=== PATIENT | male | born 1980 | race Caucasian/White ===

== ENCOUNTER 2023-01-05 09:51 | Emergency (ER) | payer OTHER ==
[~2023-01-05] VITALS: Ht 185.4 cm; Wt 96.2 kg
[2023-01-05 09:59] VITALS: BP 101/76
--- NOTE | 2023-01-05 10:06 | NUR ---
COVID, FLU SWABS DONE.
--- NOTE | 2023-01-05 11:20 | NUR ---
42 Y/O MALE BIB SELF C/O NASAL CONGESTION AND NON-PRODUCTIVE COUGH X5 DAYS, DENIES ANY SOB, NO WOB NOTED NKA PMH: DENIES
[2023-01-05] MEDS ORDERED: BENZ200C4 PO (11:41)
[2023-01-05] MEDS ORDERED: PRED20TA5 PO (11:42)
--- NOTE | 2023-01-05 11:50 | NUR ---
Patient discharged with v/s stable. Written and verbal after care instructions ABOUT ACUTE BRONCHITIS given and explained. Patient alert, oriented and verbalized understanding of instructions. Ambulatory with steady gait. All questions addressed prior to discharge. ID band removed. Patient advised to follow up with PMD. Rx of PREDNISONE, BENZONATATE given. Patient educated on indication of medication including possible reaction and side effects. Opportunity to ask questions provided and answered.
== END 2023-01-05 11:49 | disposition home or self-care (01) ==
LOC: MED 09:51
DX: J40 Bronchitis, not specified as acute or chronic (principal); Z20.822 Contact with and (suspected) exposure to COVID-19; J06.9 Acute upper respiratory infection, unspecified; Z79.899 Other long term (current) drug therapy
CPT/HCPCS: 99283